=== PATIENT | female | born 1990 | race Caucasian/White ===

== ENCOUNTER 2021-05-11 21:20 | Inpatient (IN) | payer BC, OTHER ==
[2021-05-11] MEDS ORDERED: RAPID SEQUENCE INTUBATION KIT NR ONE (21:35)
[2021-05-11] MEDS ORDERED: ROCURONIUM BROMIDE 50 MG/5 ML VIAL IV ONE (21:43)
[2021-05-11 21:57] LABS: BASO % 0.9 % (0-2.0); EOS % 1.4 % (0-4.5); HEMATOCRIT 38.9 % (32.4-45.2); HEMOGLOBIN 13.2 GM/dL (10.7-15.3); LYMPH % 35.4 % (8-40); MCH 31.1 pg (25.7-33.7); MEAN CELL VOLUME 91.4 fl (80-96); MEAN PLT VOLUME 7.8 fl (7.5-11.1); MONO % 8.7 % (3.8-10.2); NEUT % 53.6 % (42.8-82.8); PLATELET COUNT 217 10^3/uL (134-434); RBC 4.25 M/mm3 (3.60-5.2); RDW 13.4 % (11.6-15.6); WHITE BLOOD COUNT 6.2 K/mm3 (4.0-10.0)
[2021-05-11 22:01] LABS: VENOUS BASE EXCESS -2.9 mmol/L (-2-2); VENOUS O2 SATURATION 77.1 % (70-80); VENOUS PCO2 49.9 mmHg (38-52); VENOUS PH 7.3 (7.310-7.410)
[2021-05-11 22:06] LABS: INR 0.97 (0.83-1.09); PROTHROMBIN TIME (PATIENT) 11.1 SEC (9.7-13.0)
[2021-05-11 22:08] LABS: ACTIVATED PTT 33.7 SECONDS (25.2-36.5)
[2021-05-11 22:10] LABS: EPI CELLS >36 /uL (0-25.1); HYALINE CASTS 1 /uL (0-3.1); PH,URINE 5.5 (5.0-8.0); URINE APPEARANCE CLEAR; URINE BACTERIA 1439 /uL (0-1359); URINE BILIRUBIN NEGATIVE (NEGATIVE); URINE COLOR YELLOW; URINE GLUCOSE (UA) NEGATIVE (NEGATIVE); URINE KETONE NEGATIVE (NEGATIVE); URINE LEUK ESTERASE TRACE (NEGATIVE); URINE NITRITE NEGATIVE (NEGATIVE); URINE PROTEIN NEGATIVE (NEGATIVE); URINE RBC 6 /uL (0-23.9); URINE UROBILINOGEN 0.2 mg/dL (0.2-1.0); URINE WBC 35 /uL (0-25.8)
[2021-05-11 22:11] LABS: URINE BARBITURATES NEGATIVE (NEGATIVE)
[2021-05-11 22:12] LABS: COCAINE, UR NEGATIVE (NEGATIVE); METHADONE, UR NEGATIVE (NEGATIVE); OPIATES, URI NEGATIVE (NEGATIVE); PHENCYCLIDINE,URINE NEGATIVE (NEGATIVE)
[2021-05-11 22:18] LABS: URINE AMPHETAMINES POSITIVE (NEGATIVE); URINE BENZODIAZEPINES POSITIVE (NEGATIVE)
[2021-05-11 22:45] LABS: BLOOD UREA NITROGEN 13.3 mg/dL (7-18); CREATININE 0.9 mg/dL (0.55-1.3)
[2021-05-11 22:46] LABS: ALBUMIN 4.1 g/dl (3.4-5.0); BILIRUBIN,TOTAL 0.4 mg/dL (0.2-1); CALCIUM 8.6 mg/dL (8.5-10.1); TOT PROT 7.3 g/dl (6.4-8.2)
[2021-05-11] MEDS ORDERED: PROPOFOL 200 MG/20 ML VIAL IVPUSH ONE ×2 (22:56→23:08)
[2021-05-11] MEDS ORDERED: PROPOFOL 1,000,000 MCG/100 ML VIAL IVPB SCH (23:00)
[2021-05-11] MEDS ORDERED: PROPOFOL 1,000,000 MCG/100 ML VIAL ONE (23:16)
[2021-05-12 00:52] LABS: ARTERIAL BLD GAS O2 SATURATION 98.5 % (95-98); ARTERIAL BLOOD GAS BASE EXCESS -2.9 mmol/L (-2-2); ARTERIAL BLOOD GAS PO2 127.4 mmHg (80-100); ARTERIAL BLOOD GAS pH 7.385 (7.350-7.450)
[2021-05-12 00:56] LABS: ALLENS TEST POSITIVE
[2021-05-12 00:57] LABS: VENT MODE A/C; VENT RATE 16
[2021-05-12] MEDS: SODIUM CHLORIDE IVPB SCH ×2 (01:00→01:39)
[2021-05-12] MEDS: DEXMEDETOMIDINE HCL IVPB SCH ×2 (01:00→01:39)
[2021-05-12 01:30] VITALS: BMI 26.9
[2021-05-12] MEDS ORDERED: LACTATED RINGERS SOLUTION 1,000 ML/1,000 ML INFUS.BAG IV SCH (02:30)
[2021-05-12 07:02] LABS: HEMATOCRIT 37.7 % (32.4-45.2); HEMOGLOBIN 13.4 GM/dL (10.7-15.3); MCH 31.8 pg (25.7-33.7); MCHC 35.5 g/dl (32.0-36.0); MEAN CELL VOLUME 89.5 fl (80-96); MEAN PLT VOLUME 7.7 fl (7.5-11.1); PLATELET COUNT 235 10^3/uL (134-434); RBC 4.22 M/mm3 (3.60-5.2); RDW 13.1 % (11.6-15.6); WHITE BLOOD COUNT 8.5 K/mm3 (4.0-10.0)
[2021-05-12 07:15] LABS: ALBUMIN 4.1 g/dl (3.4-5.0); BLOOD UREA NITROGEN 10.6 mg/dL (7-18); CALCIUM 8.8 mg/dL (8.5-10.1)
[2021-05-12 07:18] LABS: CREATININE 0.8 mg/dL (0.55-1.3)
[2021-05-12 07:20] LABS: BILIRUBIN,TOTAL 0.4 mg/dL (0.2-1)
[2021-05-12] MEDS ORDERED: MUPIROCIN 2% TOPICAL OINTMENT FOR DECOLONIZATION NS SCH (10:00)
[2021-05-12] MEDS ORDERED: ENOXAPARIN NA (PORCINE) 40 MG/0.4 ML DISP.SYRIN SQ SCH (10:00)
[2021-05-12 13:53] VITALS: TEMP 98
[2021-05-12 17:59] VITALS: BP 100/65; PULSE 72
[2021-05-12] MEDS ORDERED: CHLORHEXIDINE GLUCONATE 4% CLEANSER FOR DECOLONIZATION TP SCH (22:00)
== END 2021-05-12 18:10 | disposition home or self-care (01) | DRG 917 ==
LOC: JER 21:20 → JERBED 23:08 → JICU 05-12 00:10
PROVIDERS: ADMIT Internal Medicine Pulmonary Disease; ATTEND Internal Medicine Pulmonary Disease
PROC: 5A1935Z Respiratory Ventilation, Less than 24 Consecutive Hours (ICD-10-PCS; principal; 2021-05-11)
PROC: 0BH17EZ Insertion of Endotracheal Airway into Trachea, Via Natural or Artificial Opening (ICD-10-PCS; 2021-05-11)
DX: T42.4X1A Poisoning by benzodiazepines, accidental (unintentional), initial encounter (principal); J96.00 Acute respiratory failure, unspecified whether with hypoxia or hypercapnia; J98.11 Atelectasis; F41.8 Other specified anxiety disorders; Y92.89 Other specified places as the place of occurrence of the external cause
CPT/HCPCS: 36415; 36600; 70450-TC; 71045-TC-FY; 72125-TC; 80053; 80307; 81003; 82550; 82553; 82803; 83605; 84132; 84484; 84703; 85025; 85027; 85610; 85730; 86850; 86900; 86901; 87040; 87086; 93005; 93010; 94002; 99285-25; C9803; U0003; U0005